=== PATIENT | female | born 1985 | race Caucasian/White ===

== ENCOUNTER 2017-01-20 13:46 | Emergency (ER) | payer OTHER ==
[~2017-01-20] VITALS: Ht 157.5 cm; Wt 75.2 kg
[~2017-01-20 13:46] MED LIST: CALCIUM 500 MG1 EACH PO; DEXILANT60 MG PO; EXCEDRIN EXTRA1 EACH PO; FISH OIL500 MG PO; HYDROCODON-ACE1 EAC7 PO; LUNESTA3 MG PO; MAXALT10 MG PO; METOPROLOL SUCC50 MG PO; MULTIVITAMIN1 EAC2 PO; NODOLOR CAPSUL1 EACH PO; NUVARING VAGIN1 EACH VG; ORSYTHIA1 EACH PO; PROBIOTIC1 EAC1 PO; PROMETHAZINE HC50 M1 PO; SERTRALINE HCL100 MG PO; STADOL NASAL2.5 ML NS; VITAMIN B-12250 MCG PO
[2017-01-20 14:31] LABS: MCH 29.7 PG (29.0-34.0); MCHC 33.7 G/DL (30.0-36.0); MCV 88.4 FL (83-99); MEAN PLAT.VOLUME 10.1 uM^3 (9.5-12.4); PLATELET COUNT 363 K/uL (156-360); RBC DIS.WIDTH-CV 12.1 % (11.8-14.6); RBC DIS.WIDTH-SD 39.3 % (39-53); RED BLOOD COUNT 4.64 M/uL (3.80-5.20); WHITE BLOOD COUNT 10.1 K/uL (4.1-10.2)
[2017-01-20 14:49] LABS: CHLORIDE 108 mEq/L (99-109); SODIUM 143 mEq/L (136-147)
[2017-01-20 14:52] LABS: GLUCOSE 92 mg/dL (70-99)
[2017-01-20 14:53] LABS: ANION GAP 10 MEQ/L (2-14)
[2017-01-20 14:54] LABS: TOTAL BILIRUBIN 0.3 mg/dL (0.0-1.0)
[2017-01-20 14:55] LABS: ALKALINE PHOSPHATASE 68 IU/L (3-129); GFR ESTIMATE (CALCULATED) > 59 mL/min/
[2017-01-20 14:57] LABS: UREA NITROGEN (BUN) 20 mg/dL (9-23)
[2017-01-20 15:06] LABS: QUANTITATIVE HCG < 4.0 MIU/ML
[2017-01-20 15:57] LABS: ADD MIUA? YES; BILIRUBIN NEGATIVE; BLOOD MODERATE; COLOR YELLOW ((YELLOW)); GLUCOSE (STRIP) NEGATIVE; KETONES NEGATIVE; LEUKOCYTES NEGATIVE; NITRITE NEGATIVE; PROTEIN (STRIP) NEGATIVE; SPECIFIC GRAVITY 1.017 (1.000-1.030); UROBILINOGEN 0.2 MG/DL (0.2-1.0)
[2017-01-20 16:06] LABS: BACTERIA RARE /HPF; EPITHELIAL CELLS 2+ /HPF; MUCUS TRACE /LPF; RED BLOOD CELLS 0-5 /HPF (0-5); UCUL ADDED? NO; WHITE BLOOD CELLS 0-5 /HPF (0-5)
[2017-01-20] MEDS ORDERED: ZOFRAN ODT4 MG PO (17:15)
[2017-01-20] MEDS ORDERED: NAPROSYN500 MG PO (17:15)
[2017-01-20] MEDS ORDERED: LORTAB 10-3251 EACH PO (17:15)
[2017-01-20] MEDS ORDERED: FLOMAX0.4 MG PO (17:16)
[2017-01-20 17:36] VITALS: BP 121/82
== END 2017-01-20 17:37 | disposition home or self-care (01) ==
LOC: EME 13:46 → RME 13:46
PROVIDERS: Nurse Practitioner Family
DX: N20.0 Calculus of kidney (principal); R31.9 Hematuria, unspecified; K59.00 Constipation, unspecified
CPT/HCPCS: 74020; 76770; 80053; 81003; 84702; 85027; 99281; 99283; J1885

== ENCOUNTER 2017-06-10 14:11 | Emergency (ER) | payer OTHER ==
[~2017-06-10] VITALS: Ht 157.5 cm; Wt 75.9 kg
[~2017-06-10 14:11] MED LIST changes: +FLOMAX0.4 MG PO; +LORTAB 10-3251 EACH PO; +NAPROSYN500 MG PO; +ZOFRAN ODT4 MG PO
[2017-06-10] MEDS ORDERED: TRAMADOL HCL50 MG PO (16:19)
[2017-06-10] MEDS ORDERED: FLEXERIL10 MG PO (16:19)
[2017-06-10] MEDS ORDERED: NAPROSYN500 MG PO (16:19)
[2017-06-10 16:42] VITALS: BP 128/83
== END 2017-06-10 16:44 | disposition home or self-care (01) ==
LOC: EME 14:11
DX: S16.1XXA Strain of muscle, fascia and tendon at neck level, initial encounter (principal); V86.59XA Driver of other special all-terrain or other off-road motor vehicle injured in nontraffic accident, initial encounter; K21.9 Gastro-esophageal reflux disease without esophagitis; J45.909 Unspecified asthma, uncomplicated; Z87.442 Personal history of urinary calculi
CPT/HCPCS: 72040; 99281; 99283

== ENCOUNTER 2018-02-20 08:49 | Emergency (ER) | payer OTHER ==
[~2018-02-20] VITALS: Ht 157.5 cm; Wt 82.1 kg
[~2018-02-20 08:49] MED LIST changes: +FLEXERIL10 MG PO; +TRAMADOL HCL50 MG PO
[2018-02-20] MEDS ORDERED: PERCOCET 5/31 TABLET PO (09:18)
[2018-02-20] MEDS ORDERED: ZOFRAN4 MG PO (09:18)
[2018-02-20] MEDS ORDERED: FLOMAX0.4 MG PO (09:18)
[2018-02-20 09:37] LABS: APPEARANCE CLEAR ((CLEAR)); BILIRUBIN NEGATIVE; BLOOD LARGE; COLOR YELLOW ((YELLOW)); GLUCOSE (STRIP) NEGATIVE; KETONES NEGATIVE; LEUKOCYTES NEGATIVE; NITRITE NEGATIVE; PROTEIN (STRIP) NEGATIVE; SPECIFIC GRAVITY 1.011 (1.000-1.030); UROBILINOGEN 0.2 MG/DL (0.2-1.0)
[2018-02-20 09:39] LABS: BACTERIA RARE /HPF; EPITHELIAL CELLS 1+ /HPF; MUCUS TRACE /LPF; RED BLOOD CELLS TNTC /HPF (0-5); WHITE BLOOD CELLS 0-5 /HPF (0-5)
[2018-02-20 09:56] VITALS: BP 108/62
== END 2018-02-20 09:57 | disposition home or self-care (01) ==
LOC: EME 08:49
PROVIDERS: Emergency Medicine
DX: N20.0 Calculus of kidney (principal); Z87.442 Personal history of urinary calculi; Z90.49 Acquired absence of other specified parts of digestive tract
CPT/HCPCS: 81003; 87086; 99281; 99284

== ENCOUNTER 2018-02-26 08:41 | Emergency (ER) | payer OTHER ==
[~2018-02-26] VITALS: Ht 157.5 cm; Wt 81.5 kg
[~2018-02-26 08:41] MED LIST changes: +PERCOCET 5/31 TABLET PO; +ZOFRAN4 MG PO
[2018-02-26 09:24] LABS: HEMATOCRIT 38.6 % (36.0-46.0); HEMOGLOBIN 13.4 G/DL (11.9-15.5); MCH 30.2 PG (29.0-34.0); MCHC 34.7 G/DL (30.0-36.0); MCV 87.1 FL (83-99); PLATELET COUNT 284 K/uL (156-360); RBC DIS.WIDTH-CV 11.9 % (11.8-14.6); RBC DIS.WIDTH-SD 38.5 % (39-53); RED BLOOD COUNT 4.43 M/uL (3.80-5.20); WHITE BLOOD COUNT 7.4 K/uL (4.1-10.2)
[2018-02-26 09:33] LABS: ALBUMIN 4.1 g/dL (3.2-4.8); CHLORIDE 104 mEq/L (99-109); POTASSIUM 3.9 mEq/L (3.7-5.4); SODIUM 139 mEq/L (136-147)
[2018-02-26 09:35] LABS: GLUCOSE 84 mg/dL (70-99); TOTAL PROTEIN 6.8 g/dL (6.4-8.3)
[2018-02-26 09:37] LABS: TOTAL BILIRUBIN 0.4 mg/dL (0.0-1.0)
[2018-02-26 09:39] LABS: ALKALINE PHOSPHATASE 69 IU/L (3-129); CREATININE 0.9 mg/dL (0.6-1.3); GFR ESTIMATE (CALCULATED) > 59 mL/min/
[2018-02-26 09:40] LABS: AST (GOT) 21 IU/L (2-34); UREA NITROGEN (BUN) 13 mg/dL (9-23)
[2018-02-26 09:42] LABS: ALT (GPT) 16 IU/L (3-49)
[2018-02-26 09:47] LABS: QUANTITATIVE HCG < 4.0 MIU/ML
[2018-02-26 09:51] LABS: APPEARANCE SL.HAZY ((CLEAR)); BILIRUBIN NEGATIVE; BLOOD MODERATE; COLOR YELLOW ((YELLOW)); GLUCOSE (STRIP) NEGATIVE; KETONES NEGATIVE; LEUKOCYTES NEGATIVE; NITRITE NEGATIVE; PROTEIN (STRIP) NEGATIVE; SPECIFIC GRAVITY 1.008 (1.000-1.030); UROBILINOGEN 0.2 MG/DL (0.2-1.0)
[2018-02-26 10:00] LABS: BACTERIA RARE /HPF; EPITHELIAL CELLS 1+ /HPF; MUCUS TRACE /LPF; RED BLOOD CELLS 15-20 /HPF (0-5); UCUL ADDED? NO; WHITE BLOOD CELLS 0-5 /HPF (0-5)
[2018-02-26] MEDS ORDERED: LORTAB 5-325 M1 EACH PO (12:21)
[2018-02-26 12:54] VITALS: BP 102/70
== END 2018-02-26 13:00 | disposition home or self-care (01) ==
LOC: EME 08:41
DX: R10.32 Left lower quadrant pain (principal); R31.9 Hematuria, unspecified; Z87.442 Personal history of urinary calculi; K21.9 Gastro-esophageal reflux disease without esophagitis; J45.909 Unspecified asthma, uncomplicated; G43.909 Migraine, unspecified, not intractable, without status migrainosus; F32.9 Major depressive disorder, single episode, unspecified; Z90.49 Acquired absence of other specified parts of digestive tract; Z86.79 Personal history of other diseases of the circulatory system; Z98.84 Bariatric surgery status; Z88.7 Allergy status to serum and vaccine; Z88.8 Allergy status to other drugs, medicaments and biological substances
CPT/HCPCS: 74018; 76770; 80053; 81003; 84702; 85027; 99281; 99285

== ENCOUNTER 2018-06-07 13:38 | Emergency (ER) | payer OTHER ==
[~2018-06-07] VITALS: Ht 157.5 cm; Wt 85.9 kg
[~2018-06-07 13:38] MED LIST changes: +LORTAB 5-325 M1 EACH PO
[2018-06-07] MEDS ORDERED: STADOL NASAL2.5 ML NS (16:49)
[2018-06-07 17:12] VITALS: BP 105/80
== END 2018-06-07 17:14 | disposition home or self-care (01) ==
LOC: EME 13:38 → RME 13:38
DX: G43.909 Migraine, unspecified, not intractable, without status migrainosus (principal)
CPT/HCPCS: 99281; 99285; J0780; J1885; J7030